=== PATIENT | female | born 1960 | race American Indian/Alaskan Native ===

== ENCOUNTER 2018-01-03 23:17 | Emergency (ER) | payer MEDICARE ==
[2018-01-04] MEDS ORDERED: MOTRIN PO ONE (00:26)
--- NOTE | 2018-01-04 01:14 | XRay Report ---
FINAL REPORT EXAM: XR ANKLE 2V LT HISTORY: left ankle pain TECHNIQUE: AP and lateral views of the left ankle were submitted. FINDINGS: There is mild soft tissue swelling overlying the lateral malleolus. The ankle mortise is well maintained. There are moderate-sized spurs along the posterior and plantar margin calcaneus. There are arthritic changes noted in the midfoot. IMPRESSION: Soft tissue swelling overlying the lateral malleolus. No acute fracture. Calcaneal spurs. Arthritic changes noted in the midfoot.
--- NOTE | 2018-01-04 01:22 | XRay Report ---
FINAL REPORT EXAM: XR KNEE 3V LT HISTORY: left knee pain TECHNIQUE: Three views of the left knee were obtained. FINDINGS: There is patellar spurring anteriorly. All 3 compartments otherwise are well maintained. There is no evidence of fracture or joint effusion. IMPRESSION: Patellar spurring. No acute process identified.
--- NOTE | 2018-01-04 01:23 | XRay Report ---
FINAL REPORT EXAM: XR HUMERUS 2+V LT HISTORY: left humerus pain TECHNIQUE: Two views of the left humerus were submitted. FINDINGS: There is no evidence of fracture or dislocation. The glenohumeral and elbow joints not show any acute changes. The soft tissues are unremarkable. IMPRESSION: Within normal limits.
--- NOTE | 2018-01-04 01:23 | XRay Report ---
FINAL REPORT EXAM: XR HIP 2-3V RT HISTORY: left hip pain TECHNIQUE: An AP view of the pelvis was obtained along with a frogleg view of the right hip. FINDINGS: The right hip joint appears normal. The bony pelvic ring appears intact. The left hip and SI joints appear normal. There endplate spurring in the lower lumbar spine. The soft tissues are unremarkable. IMPRESSION: Normal right hip. Normal-appearing left hip and SI joints. Endplate spurring in the lumbar spine.
--- NOTE | 2018-01-04 05:51 | Emergency Department Report ---
ED General Adult HPI - General Chief complaint: Pain General Stated complaint: LEFT KNEE,LEG,ARM PAIN Time Seen by Provider: 01/04/18 05:43 Source: patient Mode of arrival: Ambulatory Limitations: No Limitations - History of Present Illness Initial comments: The 7-year-old -[place] female comes here complaining for having 2 months of pain in her left humerus left hip left knee and left ankle. Patient denies any injury. She was seen at [facility] one month ago for the same symptoms. At that time patient reports that he had given her Tylenol No. 3 which she reports did not help. Patient reports that she is followed by [facility] and her primary care provider placed her on meloxicam which she reports has not helped. Patient reports that her pain in her left hip radiates down her buttocks into her left thigh. She reports that at times it feels like her left leg is heavy. Patient reports she has a past medical history of multiple joint arthritis. She has been dealing with this for several years. -: month(s) (2) Location: left, lower extremity Radiation: distal Severity scale (0 -10): 8 Quality: aching Consistency: intermittent Improves with: medication (ibuprofen helps) Associated Symptoms: denies other symptoms Treatments Prior to Arrival: none (Tylenol No. 3), NSAID (toxic exam) - Related Data Previous Rx's Medication Instructions Recorded Last Taken Type Ibuprofen [Motrin 800 MG tab] 800 mg PO Q8HR PRN #30 tablet 01/04/18 Unknown Rx Allergies Allergy/AdvReac Type Severity Reaction Status Date / Time No Known Allergies Allergy Verified 01/04/18 05:53 ED Review of Systems ROS: Stated complaint: LEFT KNEE,LEG,ARM PAIN Other details as noted in HPI Comment: All other systems reviewed and negative Musculoskeletal: arthralgia ED Past Medical Hx - Past Medical History Hx Hypertension: Yes Hx Arthritis: Yes - Surgical History Additional Surgical History: Hysterectomy, Mass on urinary bladder - Social History Smoking Status: Never Smoker Substance Use Type: None - Medications Home Medications: Home Medications Medication Instructions Recorded Confirmed Last Taken Type Ibuprofen [Motrin 800 MG tab] 800 mg PO Q8HR PRN #30 tablet 01/04/18 Unknown Rx ED Physical Exam - General Limitations: No Limitations General appearance: alert, in no apparent distress - Head Head exam: Present: atraumatic, normocephalic - Eye Eye exam: Present: EOMI - ENT ENT exam: Present: mucous membranes moist - Neck Neck exam: Present: normal inspection, full ROM. Absent: tenderness - Extremities Exam Extremities exam: Present: full ROM, normal capillary refill. Absent: tenderness, pedal edema, joint swelling, calf tenderness - Expanded Lower Extremity Exam Left Hip exam: Present: full ROM. Absent: tenderness, swelling Upper Leg exam: Present: full ROM. Absent: tenderness, swelling Knee exam: Present: full ROM. Absent: tenderness, swelling Ankle exam: Present: normal inspection, full ROM. Absent: tenderness Foot/Toe exam: Present: normal inspection, full ROM. Absent: tenderness Neuro vascular tendon exam: Present: no vascular compromise Gait: Positive: observed and normal - Back Exam Back exam: Present: full ROM - Expanded Back Exam Expanded Back exam: Sciatic Notch Tenderness: Left, Positive Straight Leg Raise: Left - Neurological Exam Neurological exam: Present: alert, oriented X3 - Psychiatric Psychiatric exam: Present: normal affect, normal mood - Skin Skin exam: Present: warm, dry, intact, normal color. Absent: rash ED Course Vital Signs 01/04/18 00:13 Temperature 98.8 F Pulse Rate 96 H Respiratory 18 Rate Blood Pressure 152/94 O2 Sat by Pulse 98 Oximetry ED Medical Decision Making - Radiology Data Radiology results: report reviewed FINAL REPORT EXAM: XR KNEE 3V LT HISTORY: left knee pain TECHNIQUE: Three views of the left knee were obtained. FINDINGS: There is patellar spurring anteriorly. All 3 compartments otherwise are well maintained. There is no evidence of fracture or joint effusion. IMPRESSION: Patellar spurring. No acute process identified. Transcribed By: RB Dictated By: LUCITA EPSTEIN MD Electronically Authenticated By: LUCITA EPSTEIN MD Signed Date/Time: 01/04/18119 DD/ 9 TD/TT: 01/04/18119 FINAL REPORT EXAM: XR HUMERUS 2+V LT HISTORY: left humerus pain TECHNIQUE: Two views of the left humerus were submitted. FINDINGS: There is no evidence of fracture or dislocation. The glenohumeral and elbow joints not show any acute changes. The soft tissues are unremarkable. IMPRESSION: Within normal limits. Transcribed By: RB Dictated By: LUCITA EPSTEIN MD Electronically Authenticated By: LUCITA EPSTEIN MD Signed Date/Time: 01/04/18121 DD/ 1 TD/TT: 01/04/18121 FINAL REPORT EXAM: XR HIP 2-3V RT HISTORY: left hip pain TECHNIQUE: An AP view of the pelvis was obtained along with a frogleg view of the right hip. FINDINGS: The right hip joint appears normal. The bony pelvic ring appears intact. The left hip and SI joints appear normal. There endplate spurring in the lower lumbar spine. The soft tissues are unremarkable. IMPRESSION: Normal right hip. Normal-appearing left hip and SI joints. Endplate spurring in the lumbar spine. Transcribed By: RB Dictated By: LUCITA EPSTEIN MD Electronically Authenticated By: LUCITA EPSTEIN MD Signed Date/Time: 01/04/18120 FINAL REPORT EXAM: XR ANKLE 2V LT HISTORY: left ankle pain TECHNIQUE: AP and lateral views of the left ankle were submitted. FINDINGS: There is mild soft tissue swelling overlying the lateral malleolus. The ankle mortise is well maintained. There are moderate-sized spurs along the posterior and plantar margin calcaneus. There are arthritic changes noted in the midfoot. IMPRESSION: Soft tissue swelling overlying the lateral malleolus. No acute fracture. Calcaneal spurs. Arthritic changes noted in the midfoot. Transcribed By: RB Dictated By: LUCITA EPSTEIN MD Electronically Authenticated By: LUCITA EPSTEIN MD Signed Date/Time: 01/04/18111 DD/ 1 TD/TT: 01/04/18111 Critical care attestation.: If time is entered above; I have spent that time in minutes in the direct care of this critically ill patient, excluding procedure time. ED Disposition Clinical Impression: Sciatica, left side Disposition: DC-01 TO HOME OR SELFCARE Is pt being admited?: No Does the pt Need Aspirin: No Condition: Stable Instructions: Sciatica (ED) Additional Instructions: Please Take pain medication as needed. Very importantly to follow up with her primary care provider. Please follow exercises that I have given [employer] discharge. Prescriptions: Ibuprofen [Motrin 800 MG tab] 800 mg PO Q8HR PRN #30 tablet PRN Reason: Pain , Severe (7-10) Referrals: PRIMARY CARE, [Primary Care Provider] - 3-5 Days Forms: Work/School Release Form(ED)
[2018-01-04 06:46] VITALS: BP 148/76
== END 2018-01-04 07:12 | disposition home or self-care (01) ==
LOC: ED 23:17
DX: M54.32 Sciatica, left side (principal); M25.562 Pain in left knee; M25.552 Pain in left hip; M25.572 Pain in left ankle and joints of left foot; M79.602 Pain in left arm; I10 Essential (primary) hypertension; M19.90 Unspecified osteoarthritis, unspecified site; Z90.710 Acquired absence of both cervix and uterus
CPT/HCPCS: 99283